=== PATIENT | female | born 1945 | race Caucasian/White ===

== ENCOUNTER 2018-09-08 14:57 | Emergency (ER) | payer MEDICARE ==
--- NOTE | 2018-09-08 15:38 | CT ---
CT Brain WO Con History: [Fall. Injury.] Comparison: None. Findings: No acute hemorrhage or infarct. No midline shift or mass effect. Ventricular size and the e xtra-axial CSF spaces are normal. No midline shift or mass effect. The calvarium is intact. 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 Impression: No acute posttraumatic intracranial sequelae.
--- NOTE | 2018-09-08 15:41 | CT ---
CT cervical spine noncontrast HISTORY: Fall. Neck injury. FINDINGS: Vertebral body height and alignment are maintained. Cervicothoracic junction is intact. Mul tilevel mild disc space narrowing and moderate osteophytosis. No acute fracture or dislocation. IMPRESSION: Degenerative changes cervical spine. No acute osseous abnormalities are demonstrated.
--- NOTE | 2018-09-08 15:42 | CT ---
CT Facial Bones WO Con History: [Injury. Fall.] Comparison: None. Findings: Chronic osteitis and volume loss left maxillary sinus. The temporomandibular joint alignmen t is normal. Nasal bones are intact. Osseous nasal septum is intact. The medial orbital montanez, lateral orbital wal ls, orbital roofs, orbital floors are intact. Mandible is intact without fracture. Mild soft tissue swelling along the right nasal labia. Pterygoid plates are intact. Impression: Right nasal labial soft tissue swelling. No acute fracture of the face.
--- NOTE | 2018-09-08 15:55 | RAD ---
Right knee 4 views HISTORY: Right knee injury. FINDINGS: Joint spaces are preserved. Tricompartmental osteophytosis. Chondrocalcinosis. No acute fra cture, dislocation or distention of the joint capsule. Smaller irregular ossific fragments project ov er the suprapatellar bursa on the lateral view. Linear calcifications projecting posterior to distal femur on the lateral view may be within the head of the gastrocnemius musculature. IMPRESSION: Degenerative changes. No acute osseous abnormalities are demonstrated.
[2018-09-08] MEDS ORDERED: Lidocaine 1% w/Epinephrine 1:100K 20 ML VIAL ONE (16:46)
--- NOTE | 2018-09-08 17:22 | RAD ---
XR Ribs Rt>= 2 View W/PA CXR History: [Injury] Comparison: None. Findings: Old right humeral neck fracture. Subcortical cysts of the right greater tuberosity. Lungs are clear. No pneumothorax or effusion. No displaced right rib fracture. Impression: No displaced right rib fracture.
[2018-09-08] MEDS ORDERED: Bacitracin Zinc 1 Packet ONE (17:38)
== END 2018-09-08 17:48 | disposition home or self-care (01) ==
LOC: ERS 14:57
DX: S01.81XA Laceration without foreign body of other part of head, initial encounter (principal); W19.XXXA Unspecified fall, initial encounter
CPT/HCPCS: 12011; 70450; 70486; 72125; J2001

== ENCOUNTER 2018-09-11 17:56 | Emergency (ER) | payer MEDICARE | END 2018-09-11 18:25 | disposition home or self-care (01) | LOC: ERS 17:56 | DX: S01.81XD Laceration without foreign body of other part of head, subsequent encounter (principal) ==